=== PATIENT | female | born 1970 | race Caucasian/White ===

== ENCOUNTER 2023-10-29 09:36 | Observation (INO) | payer MEDICARE, OTHER ==
[~2023-10-29] VITALS: Ht 167.6 cm; Wt 89.8 kg
[2023-10-29 10:03] LABS: BASOPHILS ABSOLUTE AUTO 0.03 K/mm3 (0.00-0.23); BASOPHILS PERCENT AUTO 0 % (0-2); EOSINOPHILS ABSOLUTE AUTO 0.01 K/mm3 (0.00-0.68); EOSINOPHILS PERCENT AUTO 0 % (0-6); Hematocrit 34.9 % (33.0-51.0); Hemoglobin 12.3 g/dL (11.5-16.0); IMMATURE GRAN ABSOLUTE AUTO 0.01 K/mm3 (0.00-0.10); IMMATURE GRAN PERCENT AUTO 0 % (0-1); LYMPHOCYTES ABSOLUTE AUTO 0.59 K/mm3 (0.84-5.20); LYMPHOCYTES PERCENT AUTO 9 % (21-46); MONOCYTES ABSOLUTE AUTO 0.47 K/mm3 (0.16-1.47); MONOCYTES PERCENT AUTO 7 % (4-13); Mean Corpuscular HGB 30.5 pg (26.0-34.0); Mean Corpuscular HGB Conc 35.2 g/dL (31.5-36.5); Mean Corpuscular Volume 87 fL (80-100); Mean Platelet Volume 10.4 fL (9.1-12.4); NEUTROPHILS ABSOLUTE AUTO 5.72 K/mm3 (1.96-9.15); NEUTROPHILS PERCENT AUTO 84 % (41-73); Platelet Count 289 K/mm3 (150-400); RDW Coefficient Variation 11.6 % (11.7-14.2); RDW Standard Deviation 36.9 fL (35.1-46.3); Red Blood Cell Count 4.03 M/mm3 (3.80-5.20); White Blood Cell Count 6.83 K/mm3 (4.00-11.30)
[2023-10-29 10:16] LABS: Albumin, Blood 3.5 g/dL (3.4-5.0); Albumin/Globulin Ratio 0.9 (0.8-1.8); Bilirubin, Total 1.8 mg/dL (0.1-1.0); Bun/Creatinine Ratio 9.6 (12.0-20.0); Calcium, Blood 9.3 mg/dL (8.5-10.1); Creatinine, Blood 1.35 mg/dL (0.40-1.00); Potassium, Blood 4.3 mmol/L (3.5-5.5); Total Protein, Blood 7.5 g/dL (6.4-8.2)
[2023-10-29] MEDS ORDERED: Morphine Sulfate 4 MG/1 ML Injection IV ONE ×2 (10:20→12:05)
[2023-10-29] MEDS ORDERED: Ondansetron HCl 2 MG / ML 2ML Vial IV ONE ×2 (10:20→14:55)
[2023-10-29] MEDS ORDERED: NS 1,000 ML IV SCH (10:20)
[2023-10-29] MEDS ORDERED: HYDROmorphone HCl/Pf 1MG SYR IV ONE (14:55)
[2023-10-29] MEDS ORDERED: FentaNYL Citrate 50 MCG/ML 2 ML Injection IV PRN (17:00)
[2023-10-29] MEDS ORDERED: Ondansetron HCl 2 MG / ML 2ML Vial IV PRN (17:00)
[2023-10-29] MEDS ORDERED: LORA.5 PO (17:02)
[2023-10-29] MEDS ORDERED: TRAZ50 PO (17:03)
[2023-10-29] MEDS ORDERED: Prozac20 MG PO (17:03)
[2023-10-29] MEDS ORDERED: SEROQUEL25 MG PO (17:03)
[2023-10-29] MEDS ORDERED: BANOPHEN25 MG PO (17:05)
[2023-10-29] MEDS ORDERED: TraMADol HCl 50 MG Tab PO PRN (17:35)
--- NOTE | 2023-10-29 17:50 | NUR ---
SUMMARY PT ARRIVED TO UNIT FROM ED. TRANSFERRED INDEPENDENTLY TO BED FROM [facility]. ORIENTED TO ROOM AND USE OF CALL LIGHT. EDUCATED ON FALL PRECAUTIONS. CALL LIGHT IN REACH.
[2023-10-29 19:55] VITALS: BP 148/86
[2023-10-30] VITALS (15 sets, daily range): BP systolic 148–179; BP diastolic 83–100
[2023-10-30 03:52] LABS: BASOPHILS ABSOLUTE AUTO 0.04 K/mm3 (0.00-0.23); BASOPHILS PERCENT AUTO 1 % (0-2); EOSINOPHILS ABSOLUTE AUTO 0.05 K/mm3 (0.00-0.68); EOSINOPHILS PERCENT AUTO 1 % (0-6); Hematocrit 33.2 % (33.0-51.0); Hemoglobin 11.2 g/dL (11.5-16.0); IMMATURE GRAN ABSOLUTE AUTO 0.04 K/mm3 (0.00-0.10); IMMATURE GRAN PERCENT AUTO 1 % (0-1); LYMPHOCYTES ABSOLUTE AUTO 0.84 K/mm3 (0.84-5.20); LYMPHOCYTES PERCENT AUTO 10 % (21-46); MONOCYTES ABSOLUTE AUTO 0.73 K/mm3 (0.16-1.47); MONOCYTES PERCENT AUTO 9 % (4-13); Mean Corpuscular HGB 29.9 pg (26.0-34.0); Mean Corpuscular HGB Conc 33.7 g/dL (31.5-36.5); Mean Corpuscular Volume 89 fL (80-100); Mean Platelet Volume 10.1 fL (9.1-12.4); NEUTROPHILS ABSOLUTE AUTO 6.37 K/mm3 (1.96-9.15); NEUTROPHILS PERCENT AUTO 79 % (41-73); Platelet Count 223 K/mm3 (150-400); RDW Coefficient Variation 11.6 % (11.7-14.2); RDW Standard Deviation 36.8 fL (35.1-46.3); Red Blood Cell Count 3.75 M/mm3 (3.80-5.20); White Blood Cell Count 8.07 K/mm3 (4.00-11.30)
[2023-10-30 04:21] LABS: Albumin, Blood 3.2 g/dL (3.4-5.0); Albumin/Globulin Ratio 0.8 (0.8-1.8); Bilirubin, Total 1.6 mg/dL (0.1-1.0); Bun/Creatinine Ratio 8.7 (12.0-20.0); Calcium, Blood 8.7 mg/dL (8.5-10.1); Creatinine, Blood 1.27 mg/dL (0.40-1.00); Globulin, Blood 3.8 g/dL (2.2-4.0)
--- NOTE | 2023-10-30 05:29 | NUR ---
SHIFT SUMMARY PT HAS RESTED T/O THE NIGHT. PT HAD A HEADACHE AT THE START OF THE SHIFT, THAT WAS RELEIVED WITH MEDS PER EMAR. INTERMITTENT ABD PAIN AND NAUSEA RELIEVED WITH MEDS PER EMAR. PT HAS BEEN INDEPENDENT IN THE ROOM. PLAN IS FOR SURGERY TODAY. VITALS STABLE. BED IN LOWEST POSITION, CALL LIGHT WITHIN REACH.
[2023-10-30] MEDS ORDERED: Pantoprazole Sodium 40 MG Injection IV SCH (06:00)
[2023-10-30] MEDS ORDERED: Bupivacaine 0.5% Inj 10 ML Vial ONE (08:01)
[2023-10-30] MEDS ORDERED: propofoL 20 ML IV ONE (08:19)
[2023-10-30] MEDS ORDERED: Lidocaine HCl 2% 20 ML MDV ONE (08:19)
[2023-10-30] MEDS ORDERED: Rocuronium Bromide 10 MG/ML 5ML Injection IV ONE ×2 (08:21→09:35)
[2023-10-30] MEDS ORDERED: FentaNYL Citrate 50 MCG/ML 2 ML Injection ONE ×4 (08:21→10:42)
[2023-10-30] MEDS ORDERED: Lidocaine HCl 2% Jelly 120MG/6ML SYR (20MG PER ML) ONE (08:23)
[2023-10-30] MEDS ORDERED: CefOXitin Sodium 2,000 MG in NS 50 ML IV SCH (08:40)
[2023-10-30] MEDS ORDERED: Midazolam HCl 1MG / ML 2ML Vial ONE (08:43)
[2023-10-30] MEDS ORDERED: Indocyanine Green 25 MG Vial IV STA (08:44)
--- NOTE | 2023-10-30 08:48 | NUR ---
DR VILLA IN TO SEE PT OR CREW IN RM TO TRANSPORT PT TO OR.
--- NOTE | 2023-10-30 08:51 | NUR ---
PT TO OR.
[2023-10-30] MEDS ORDERED: Dexamethasone Sod Phos 10 MG/ML 1ML VIAL ONE (09:25)
[2023-10-30] MEDS ORDERED: Ondansetron HCl 2 MG / ML 2ML Vial ONE ×2 (09:25→10:37)
[2023-10-30] MEDS ORDERED: Labetalol HCL 5 MG/ML 4ML Injection (Single Dose) ONE (09:39)
--- NOTE | 2023-10-30 09:39 | NUR ---
10/30/23 0939 Jennyfer Reyes 2.5MLS OF ICG GIVEN PRIOR TO COMING TO THE OR.
[2023-10-30] MEDS ORDERED: Sugammadex Sodium 200 MG/2ML SDV (100 MG/ML) ONE (10:11)
[2023-10-30] MEDS ORDERED: Metoclopramide HCl 5MG / ML 2ML Vial ONE (10:47)
[2023-10-30] MEDS ORDERED: HYDROmorphone HCl/Pf 1MG SYR ONE (10:48)
[2023-10-30] MEDS ORDERED: OxyCODONE HCL 5 MG TAB PO PRN ×2 (11:25→13:50)
--- NOTE | 2023-10-30 11:32 | NUR ---
PT ARRIVED TO UNIT FROM PACU TRANSFERRED FROM [facility] TO BED. LAP INCISIONS TO ABD X4 W/TISS ADHESIVE. FAR LEFT INCISION OOZING SLIGHTLY, BANDAID IN PLACE. CALL LIGHT IN REACH AND SNACKS/WATER PROVIDED. PLACED ON 2L 02, SATS DROPPED WHEN DOZING OFF TO LOW 90S.
[2023-10-30] MEDS ORDERED: Ondansetron 4 MG SoluTab MM PRN (13:50)
[2023-10-30] MEDS ORDERED: OXYC5 PO (13:52)
[2023-10-30] MEDS ORDERED: ONDA4 PO (13:52)
--- NOTE | 2023-10-30 14:58 | NUR ---
discharged pt's pain controlled w/po pain meds, pt tolerated po intake and voided. verbalized desire to dc home. bp elevated t/o stay; advised pt to monitor and f/u with pcp. pt has dc orders to f/u with pcp within 72 hours. pt verbalized understanding. reviewed dc instructions w/pt; verbalized understanding. pt left unit in [place] w/possessions and dc paperwork in hand,accompanied by family member to ride waiting outside.
== END 2023-10-30 14:57 | disposition home or self-care (01) ==
LOC: ER 09:36 → SURS 09:37
PROVIDERS: Emergency Medicine; Surgery; ADMIT Family Medicine
PROC: 0FT44ZZ Resection of Gallbladder, Percutaneous Endoscopic Approach (ICD-10-PCS; principal; 2023-10-30 09:00)
DX: K80.12 Calculus of gallbladder with acute and chronic cholecystitis without obstruction (principal); K82.8 Other specified diseases of gallbladder; C53.8 Malignant neoplasm of overlapping sites of cervix uteri; Z87.891 Personal history of nicotine dependence; Z91.041 Radiographic dye allergy status; Z79.899 Other long term (current) drug therapy
CPT/HCPCS: 36415; 74181; 76705; 80053; 83690; 84702; 85025; 88304; 94762; 96361; 96374; 96375; 96376; 99285-25; A9270; C9113; J0694; J1100; J1170; J2250; J2270; J2405; J2704; J2765; J3010; J7030